=== PATIENT | female | born 1940 | race Caucasian/White ===

== ENCOUNTER 2017-05-23 06:48 | Inpatient (IN) ==
--- NOTE | 2017-05-22 20:37 | Discharge Summary ---
<Kati Alva E - Last Filed: 05/22/17 20:34> Date of Encounter: 05/22/17 - Discharge Diagnosis (1) Arthritis of right knee Priority: Primary Status: Chronic (2) CAD (coronary artery disease) Priority: Secondary Status: Chronic Qualifiers: Coronary Disease-Associated Artery/Lesion type: unspecified vessel or lesion type [place] vs. transplanted heart: unspecified whether [place] or transplanted heart Associated angina: angina presence unspecified Qualified Code(s): I25.10 - Atherosclerotic heart disease of [place] coronary artery without angina pectoris (3) CKD (chronic kidney disease) Priority: Secondary Status: Chronic Qualifiers: Chronic kidney disease stage: unspecified stage Qualified Code(s): N18.9 - Chronic kidney disease, unspecified (4) Gout Priority: Secondary Status: Chronic Qualifiers: Gout site: unspecified site Gout etiology: unspecified cause Chronicity: unspecified Qualified Code(s): M10.9 - Gout, unspecified (5) IDDM (insulin dependent diabetes mellitus) Priority: Secondary Status: Chronic (6) HTN (hypertension) Priority: Secondary Status: Chronic Qualifiers: Hypertension type: unspecified Qualified Code(s): I10 - Essential (primary ) hypertension (7) Hemoglobin A1c 8.0 percent or greater Priority: Secondary Status: Chronic (8) HLD (hyperlipidemia) Priority: Secondary Status: Chronic Qualifiers: Hyperlipidemia type: unspecified Qualified Code(s): E78.5 - Hyperlipidemia , unspecified (9) GERD (gastroesophageal reflux disease) Priority: Secondary Status: Chronic Qualifiers: Esophagitis presence: esophagitis presence not specified Qualified Code(s) : K21.9 - Gastro-esophageal reflux disease without esophagitis (10) COPD (chronic obstructive pulmonary disease) Priority: Secondary Status: Chronic Qualifiers: COPD type: unspecified COPD Qualified Code(s): J44.9 - Chronic obstructive pulmonary disease, unspecified (11) ABA (obstructive sleep apnea) Priority: Secondary Status: Chronic - Discharge Medications Home Medications: Aspirin Enteric Coated [Aspirin EC] 325 mg PO DAILY 21 Days #21 tablet. [Rx] OxyCODONE Immed Rel [Roxicodone 5 MG] 5 mg PO Q6HR PRN 7 Days #28 tablet [Rx] Allopurinol [Zyloprim 100 MG] 100 mg PO DAILY 05/23/17 [History] Amitriptyline [Elavil] 25 mg PO HS 05/23/17 [History] Aspirin [Lo-Dose Aspirin EC] 81 mg PO DAILY 05/23/17 [History] Calcium Carbonate [Calcium] 600 mg PO BID 05/23/17 [History] Celecoxib [Celebrex] 200 mg PO DAILY 05/23/17 [History] Docusate Sodium [Dok] 100 mg PO BID 05/23/17 [History] Insulin Glargine,Hum.rec.anlog [Lantus Solostar] 55 units SQ BID 05/23/17 [ History] Insulin LISPRO [Humalog Kwikpen U-100] 0 unit SQ TID PRN 05/23/17 [History] Losartan/Hydrochlorothiazide [Losartan-Hctz 100-25 mg Tab] 1 tab PO DAILY [History] Metoprolol [Lopressor] 50 mg PO BID 05/23/17 [History] Omeprazole [PriLOSEC] 20 mg PO DAILY 05/23/17 [History] OxyCODONE/APAP 10/325 [Percocet 10/325 MG] 1 - 2 tab PO Q6H PRN 05/23/17 [ History] Oxygen 2 l NS HS 05/23/17 [History] Venlafaxine [Effexor] 37.5 mg PO DAILY 05/23/17 [History] Vitamin E Acetate [Vitamin E] 400 unit PO DAILY 05/23/17 [History] Allergies/Adverse Reactions: 3 Allergy/AdvReac Type Severity Reaction Status Date / Time No Known Allergies Allergy Verified 05/23/17 07:20 Primary care physician: Jayson Yanez Jr, MD - Patient Status Disposition: Home Health Service Condition: Good - Discharge Instructions Follow Up With: Jayson Yanez Jr, MD [Primary Care Provider] - - Hospital Course Hospital course: Ms. Wyatt is a 77 year old female - Time Spent with Patient Total time spent providing and/or coordinating discharge services: <Enmanuel Ortiz - Last Filed: 05/24/17 08:53> Date of Encounter: 05/24/17 Time of Encounter: 08:53 - Discharge Diagnosis (1) Obesity (BMI 30.0-34.9) Priority: Secondary Status: Chronic (2) Arthritis of right knee Priority: Primary Status: Chronic (3) CAD (coronary artery disease) Priority: Secondary Status: Chronic Qualifiers: Coronary Disease-Associated Artery/Lesion type: unspecified vessel or lesion type [place] vs. transplanted heart: unspecified whether [place] or transplanted heart Associated angina: angina presence unspecified Qualified Code(s): I25.10 - Atherosclerotic heart disease of [place] coronary artery without angina pectoris (4) CKD (chronic kidney disease) Priority: Secondary Status: Chronic Qualifiers: Chronic kidney disease stage: unspecified stage Qualified Code(s): N18.9 - Chronic kidney disease, unspecified (5) Gout Priority: Secondary Status: Chronic Qualifiers: Gout site: unspecified site Gout etiology: unspecified cause Chronicity: unspecified Qualified Code(s): M10.9 - Gout, unspecified (6) IDDM (insulin dependent diabetes mellitus) Priority: Secondary Status: Chronic (7) HTN (hypertension) Priority: Secondary Status: Chronic Qualifiers: Hypertension type: unspecified Qualified Code(s): I10 - Essential (primary ) hypertension (8) HLD (hyperlipidemia) Priority: Secondary Status: Chronic Qualifiers: Hyperlipidemia type: unspecified Qualified Code(s): E78.5 - Hyperlipidemia , unspecified (9) GERD (gastroesophageal reflux disease) Priority: Secondary Status: Chronic Qualifiers: Esophagitis presence: esophagitis presence not specified Qualified Code(s) : K21.9 - Gastro-esophageal reflux disease without esophagitis (10) COPD (chronic obstructive pulmonary disease) Priority: Secondary Status: Chronic Qualifiers: COPD type: unspecified COPD Qualified Code(s): J44.9 - Chronic obstructive pulmonary disease, unspecified (11) ABA (obstructive sleep apnea) Priority: Secondary Status: Chronic (12) Status post total right knee replacement Priority: Primary Status: Acute (13) Acute blood loss anemia Priority: Primary Status: Acute (14) Hemoglobin A1c 8.0 percent or greater Priority: Secondary Status: Chronic Primary care physician: Jayson Yanez Jr, MD - Patient Status Functional capacity at discharge: uses cane/walker Overall status at discharge: patient is progressing back to baseline - Hospital Course Hospital course: Ms. Wyatt is a 77 year old female Status post right total knee replacement The patient had an uneventful postoperative course. They received antibiotics and physical therapy and were discharged in stable condition. There will follow -up in the office in 2 weeks. - Time Spent with Patient Total time spent providing and/or coordinating discharge services:
--- NOTE | 2017-05-22 20:42 | Physician Discharge Referral ---
Home Health/Hosp Referral Info Transfer to: Home Health Attending Provider: Dr. Enmanuel Ortiz - Diagnosis (1) Arthritis of right knee Priority: Primary Status: Chronic (2) CAD (coronary artery disease) Priority: Secondary Status: Chronic (3) CKD (chronic kidney disease) Priority: Secondary Status: Chronic (4) Gout Priority: Secondary Status: Chronic (5) IDDM (insulin dependent diabetes mellitus) Priority: Secondary Status: Chronic (6) HTN (hypertension) Priority: Secondary Status: Chronic (7) Hemoglobin A1c 8.0 percent or greater Priority: Secondary Status: Chronic (8) HLD (hyperlipidemia) Priority: Secondary Status: Chronic (9) GERD (gastroesophageal reflux disease) Priority: Secondary Status: Chronic (10) COPD (chronic obstructive pulmonary disease) Status: Chronic (11) ABA (obstructive sleep apnea) Priority: Secondary Status: Chronic (12) Status post total right knee replacement Priority: Primary Status: Acute - Respiratory Orders Smoking Cessation: Smoking cessation has been advised. For more information, call the [employer] [employer] Quit Line at [phone]. - Dressing/Wound Care Site: right knee Type of Dressing/Treatments w/Frequency: Opsite placed. Keep dressing intact until first follow up appointment. If > 50% saturated, notify office, remove dressing and place appropriate dressing back in place. Leave Zipline intact. Opsite dressing is water resistant, not water- proof. OK to shower, but do not get dressing wet. - Diet/Nutrition Diet/Nutrition Orders: Regular - Activity Activity Orders: Up ad maryanne, Ambulate, Chair, Walker - Services Needed Following services are medically necessary services: Nursing, Home Health Aide, Physical Therapy, Occupational Therapy Home Care Orders: Total Knee replacement Precautions x 6 weeks Apply cold therapy wrap 3-6x/day for 20 minutes at a time. Encourage ambulation throughout the day and incentive spirometer 10x/hour. Elevate affected extremity above heart as tolerated. Brace: Wear knee immobilizer at night x 2 weeks. - Transfer Medications Prescriptions: OxyCODONE Immed Rel [Roxicodone 5 MG] 5 mg PO Q6HR PRN 7 Days #28 tablet PRN Reason: Pain Aspirin Enteric Coated [Aspirin EC] 325 mg PO DAILY 21 Days #21 tablet. Home Medications: Aspirin Enteric Coated [Aspirin EC] 325 mg PO DAILY 21 Days #21 tablet. [Rx] OxyCODONE Immed Rel [Roxicodone 5 MG] 5 mg PO Q6HR PRN 7 Days #28 tablet [Rx] Allergies/Adverse Reactions: 3 Allergy/AdvReac Type Severity Reaction Status Date / Time No Known Allergies Allergy Verified 05/07/17 09:48 Certification: Further, I certify that my clinical findings support that this patient is homebound (i.e. absences from home require considerable and taxing effort and are for medical reasons or jehovah's witness services or infrequently or short duration when for other reasons) because: Homebound Reason: Post-surgery restriction and or conditions limit ability to leave home Attestation: My signature below is to certify that this patient is under my care and that I, or nurse practitioner, or a physician interior design assistant working with me, has a face-to- face encounter with this patient.
[2017-05-23] MEDS ORDERED: Ethanol\\Acetic Acid\\Na Ace\\Ben 1,000 ML IRRIG.SOLN IR ONE (07:12)
[2017-05-23] MEDS ORDERED: CeFAZolin Syr 2,000MG/20 ML 2,000 MG/20 ML SYRINGE IVPB ONE (07:23)
[2017-05-23] MEDS ORDERED: Albuterol 2.5 MG/3 ML NEBULIZER IH ONE (07:23)
[2017-05-23] MEDS ORDERED: Ringers Solution, Lactated 1,000 ML IVC SCH ×2 (07:30→13:55)
--- NOTE | 2017-05-23 07:38 | History & Physical Report ---
Date of Encounter: 05/23/17 Time of Encounter: 07:37 24 Hour HP Update - Instructions Instructions: If the History and Physical is less than 30 days old and was completed prior to A.M. admission and or procedure and has NOT been updated on calendar day of procedure please complete this update prior to performing procedure. - Update Patient reports changes in Medical Condition: No Changes in examination, assessment, or condition: No Changes in Medication: No Preop tests/diagnostics Reviewed: Yes Surgery Remains Indicated: Yes Consent for Planned Operative Procedure(s) Verified: Yes - Pre-Operative Checklist Preoperative Checklist Indicated: No Prophylactic Antibiotic Ordered: Yes Is VTE Prophylaxis Indicated?: Yes
[2017-05-23] MEDS ORDERED: ROPIVACAINE HCL/PF 0.5% 30 ML VIAL ONE ×2 (08:33→10:48)
[2017-05-23] MEDS ORDERED: Ondansetron 4 MG/2 ML VIAL ONE (08:33)
[2017-05-23] MEDS ORDERED: Bupivacaine/Clonidine Syringe 1 EACH SYRINGE ONE (08:33)
--- NOTE | 2017-05-23 08:35 | Anesthesia Evaluation PreOp ---
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 [Rx] OxyCODONE Immed Rel [Roxicodone 5 MG] 5 mg PO Q6HR PRN 7 Days #28 tablet [Rx] Allopurinol [Zyloprim 100 MG] 100 mg PO DAILY 05/23/17 [History] Amitriptyline [Elavil] 25 mg PO HS 05/23/17 [History] Aspirin [Lo-Dose Aspirin EC] 81 mg PO DAILY 05/23/17 [History] Calcium Carbonate [Calcium] 600 mg PO BID 05/23/17 [History] Celecoxib [Celebrex] 200 mg PO DAILY 05/23/17 [History] Docusate Sodium [Dok] 100 mg PO BID 05/23/17 [History] Insulin Glargine,Hum.rec.anlog [Lantus Solostar] 55 units SQ BID 05/23/17 [ History] Insulin LISPRO [Humalog Kwikpen U-100] 0 unit SQ TID PRN 05/23/17 [History] Losartan/Hydrochlorothiazide [Losartan-Hctz 100-25 mg Tab] 1 tab PO DAILY [History] Metoprolol [Lopressor] 50 mg PO BID 05/23/17 [History] Omeprazole [PriLOSEC] 20 mg PO DAILY 05/23/17 [History] OxyCODONE/APAP 10/325 [Percocet 10/325 MG] 1 - 2 tab PO Q6H PRN 05/23/17 [ History] Oxygen 2 l NS HS 05/23/17 [History] Venlafaxine [Effexor] 37.5 mg PO DAILY 05/23/17 [History] Vitamin E Acetate [Vitamin E] 400 unit PO DAILY 05/23/17 [History] 3 Allergy/AdvReac Type Severity Reaction Status Date / Time No Known Allergies Allergy Verified 05/23/17 07:20 - Meds/Allergy Pre-op Review Medications Reviewed: Yes Allergies Reviewed: Yes Beta Blockers on Current Med List: Yes If Beta Blockers taken, Date/Time (Last Dose taken): 05-23-17 metoprolol 7:55 Anesthesia Results - Labs Laboratory Tests 05/07/17 05/07/17 05/07/17 10:02 10:02 10:02 WBC 7.0 Hgb 13.0 Hct 39.3 Plt Count 186 PT 10.7 INR 1.0 APTT 32.4 Sodium 131 L Potassium 4.7 H Chloride 94 L Carbon Dioxide 24 BUN 34 H Creatinine 1.14 H Est GFR ( Amer) 56 L Est GFR (Non-Af Amer) 46 L BUN/Creatinine Ratio 30 H Est Mean Plasma Glucose Hemoglobin A1c 05/07/17 10:02 WBC Hgb Hct Plt Count PT INR APTT Sodium Potassium Chloride Carbon Dioxide BUN Creatinine Est GFR ( Amer) Est GFR (Non-Af Amer) BUN/Creatinine Ratio Est Mean Plasma Glucose 183 Hemoglobin A1c 8.0 H - Imaging EKG: report reviewed, image reviewed (SINUS RHYTHM WITH FIRST DEGREE AV BLOCK RIGHT BUNDLE BRANCH BLOCK LEFT ANTERIOR FASCICULAR BLOCK LEFT VENTRICULAR HYPERTROPHY AND ST-T CHANGE) Anesthesia Exam Last Vital Signs Temp 97.4 F L 05/23/17 07:36 Pulse 96 05/23/17 07:36 Resp 18 05/23/17 07:36 BP 155/72 05/23/17 07:36 Pulse Ox 97 05/23/17 07:36 Weight: 97 kg NPO (# of Hours): > 8 hrs - HEENT Pupil (Motor): Pupils equal, EOMI Mallampati: III Teeth: Edentulous Oral Opening: Greater than 3 - 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
[2017-05-23] MEDS ORDERED: Lidocaine -MPF 2% 2 ML VIAL ONE (08:46)
[2017-05-23] MEDS ORDERED: *HR* FentaNYL (PF) 100 MCG/2 ML VIAL ONE (08:46)
[2017-05-23] MEDS ORDERED: *HR* Propofol 200 MG/20 ML VIAL IVP ONE (08:46)
[2017-05-23] MEDS ORDERED: *HR* HYDROmorphone (PF) 1 MG/ML SYRINGE IVP PRN ×2 (10:38→13:55)
[2017-05-23] MEDS ORDERED: *HR* Promethazine 25 MG/ML VIAL IVP PRN (10:38)
[2017-05-23] MEDS ORDERED: Dexamethasone 4 MG/ML VIAL ONE ×2 (10:49→11:58)
--- NOTE | 2017-05-23 11:11 | Anesthesia Procedures ---
Date of Encounter: 05/23/17 Time of Encounter: 10:55 Procedures: Anesthesia - Nerve Block Procedure Date: 05/23/17 Time: 10:55 Allergies/Adv Reactions: NKDA Pre-op Diagnosis: Right knee arthritis Surgical Procedure: Right total knee arthroplasty Checklist: Correct Patient Identifier, Correct procedure, History checked Correct side: Right Blood Thinner: No Monitor Applied: EKG, BP, Pulse Oximetry Supplemental Oxygen via Nasal Cannula (L/min): 3 Sedation: Fentanyl (mcg): 100 Indication: Post Op Analgesia Pre-op Neuro Deficits: No Block Type: Femoral, Other (IPAC) Catheter placed: No Sterile Technique: Yes Ultrasound used: Yes Anatomy identified: Yes Visual spread of Local: Yes Neuro Stimulation: No Blood on Needle Aspiration: No Smooth Injection of Local: Yes Pain with Injection of Local: No Prep: Chlorhexadine Needle: 22 x 50 mm Stimuplex, 21 x 100 mm Stimuplex Local: 0.25% Bupivicaine w/Clonidine 20 mcg/cc (20ml IPAC), Ropivacaine (0.5% 30ml) Volume (cc): 50 Number of Attempts: 1 Complications: None/effective block Vitals: Vital Signs Temperature 97.4 F L 05/23/17 07:15 Pulse Rate 96 05/23/17 07:15 Respiratory Rate 18 05/23/17 07:15 Blood Pressure 155/72 05/23/17 07:15 O2 Sat by Pulse Oximetry 97 05/23/17 07:15 Temperature 97.4 F L 05/23/17 07:36 Pulse Rate 80 05/23/17 10:28 Respiratory Rate 16 05/23/17 10:28 Blood Pressure 150/73 05/23/17 10:28 O2 Sat by Pulse Oximetry 96 05/23/17 10:28
--- NOTE | 2017-05-23 12:39 | Orthopedic Operative Note ---
Date of procedure: 05/23/17 Pre-op diagnosis: Right knee arthritis Post-op diagnosis: same Procedure: Procedure: Right robotic-assisted Total knee replacement Estimated blood loss: 500 cc Hardware: Metal and polyethylene replacement. Kouts Femur: 3 Tibia: 4 TC 11 Patella: 36 Exam Under anesthesia: 15 degrees flexion contracture 15 degrees varus as calculated by the robot full flexion and no instability Procedural Notes: Grade 4 arthritic changes patellofemoral joint medial compartment Operative procedure: The patient was brought to the operating room and placed on the operating room table. After general anesthesia was administered the operative knee was examined. Findings were noted in the exam under anesthesia. The operative extremity was prepped and draped in sterile surgical fashion. The patient received IV antibiotics prior to skin incision. A standard midline incision was made centered over the patella. The incision was made through the skin and subcutaneous tissue. A medial parapatellar tendon approach was performed. Care was taken to preserve tissue along the medial aspect of the patella. And to protect the patella tendon. The deep MCL was released off the medial tibia. The infra patella fat pad was excised. The patella was everted and cut was made at the level of the insertion of the quadriceps and patella tendon. The patella was sized to a 36 the guide was seated and the lug holes are drilled. Knee was brought into flexion. Patient noted to have grade 4 arthritic changes medial compartment and patellofemoral joint. Steinmann pins were placed in the tibia and the femur for the tibial and femoral arrays respectively. Checkpoints were also placed in the tibia and the femur for calculation purposes. The knee including the femur and the tibial registered. Osteophytes , ACL and PCL were excised at this point. Extension was assessed and valgus stress applied at 15 degrees of flexion and 90 degrees of flexion components were adjusted appropriately. Femoral cuts were made first with robotic assistance, these included the anterior cut posterior cuts chamfer cuts. Tibial cut was then performed with robotic assistance as well. Bone fragments were removed, as well as the medial and lateral meniscus. The size 3 femoral guide was seated box cut was made lug holes are drilled. The size 4 tibial tray was seated and prepared with the fin cutter. Trial reduction with the 11 TC Yen revealed extension of 0 degree 8 degrees varus and full flexion. No varus valgus instability. Trial reduction revealed excellent patella tracking. All trial components were removed all bony surfaces were irrigated. Tibias cemented followed by the femur TC Yen size 11 was seated and secured patella. Patient had similar findings for motion and stability. The knee was closed by the PA. The knee was then irrigated out with 2 L of pulse irrigation. The extensor mechanism was closed with #2 FiberWire suture and #2 PDS suture. The subcutaneous tissue was then irrigated and closed deep with #1 PDS suture superficially with 0 PDS suture and skin was closed with zip tie The patient was then placed in a sterile dressing and a postoperative brace extubated and transferred to recovery room in stable condition. Anesthesia: GETA Surgeon: Enmanuel Ortiz Was there an resident programs assistant present: No Estimated blood loss (cc): 500 Condition: stable Disposition: PACU
[2017-05-23] MEDS ORDERED: EPHEDrine 50 MG/ML VIAL ONE (12:46)
[2017-05-23 13:39] LABS: Hematocrit 35.8 % (35.3-44.9); Hemoglobin 11.5 g/dL (11.5-15.4)
[2017-05-23] MEDS ORDERED: D5% in Water 1,000 ML IVC PRN (13:55)
[2017-05-23] MEDS ORDERED: Sennosides 8.6 MG TABLET PO PRN (13:55)
[2017-05-23] MEDS ORDERED: MOM Conc 10 ML UD.LIQ PO PRN (13:55)
[2017-05-23] MEDS ORDERED: *HR* Dextrose 50 % in Water (Syg) 50 ML SYRINGE IVP PRN (13:55)
[2017-05-23] MEDS ORDERED: Dextrose Gel 15 GM PO PRN ×2 (13:55)
[2017-05-23] MEDS ORDERED: Temazepam 15 MG CAPSULE PO PRN (13:55)
[2017-05-23] MEDS ORDERED: Ondansetron 4 MG/2 ML VIAL IVP PRN (13:55)
[2017-05-23] MEDS ORDERED: Naloxone 0.4 MG/ML INJ IVP PRN (13:55)
[2017-05-23] MEDS ORDERED: *HR* OxyCODONE Immed Rel 5 MG TABLET PO PRN (13:55)
[2017-05-23] MEDS: Insulin LISPRO 300 UNITS/3 ML VIAL SQ SCH ×2 (14:41→17:02)
[2017-05-23] MEDS: Aspirin Enteric Coated 81 MG Tablet PO SCH (14:43)
[2017-05-23] MEDS: Losartan/HCTZ 50-12.5 TABLET PO SCH (14:43)
[2017-05-23] MEDS: Insulin DETEMIR 100 UNIT/ML X5UNITS SQ SCH ×2 (17:00→21:27)
[2017-05-23] MEDS: *HR* Enoxaparin 30 MG/0.3 ML SYRINGE SQ SCH (17:02)
[2017-05-23] MEDS ORDERED: *HR* Enoxaparin 30 MG/0.3 ML SYRINGE SQ SCH (18:00)
[2017-05-23] MEDS ORDERED: NON-FORMULARY MEDICATION 1 EACH EACH (Oxygen [Oxygen] 2 L) NS SCH (21:00)
[2017-05-23] MEDS ORDERED: Insulin LISPRO 300 UNITS/3 ML VIAL SQ SCH (21:00)
[2017-05-23] MEDS: CeFAZolin Premix DUPLEX 2,000 MG/50 ML BAG IVPB SCH (21:26)
[2017-05-24] MEDS: CeFAZolin Premix DUPLEX 2,000 MG/50 ML BAG IVPB SCH (03:18)
[2017-05-24 04:48] LABS: Hematocrit 28.8 % (35.3-44.9)
[2017-05-24 04:58] LABS: Potassium 4.6 mEq/L (3.5-5.1)
[2017-05-24 05:01] LABS: Hemoglobin 9.5 g/dL (11.5-15.4)
[2017-05-24] MEDS: *HR* Enoxaparin 30 MG/0.3 ML SYRINGE SQ SCH (06:30)
[2017-05-24] MEDS: Aspirin Enteric Coated 81 MG Tablet PO SCH (07:34)
[2017-05-24] MEDS: Losartan/HCTZ 50-12.5 TABLET PO SCH (07:35)
[2017-05-24] MEDS: *HR* OxyCODONE Immed Rel 5 MG TABLET PO PRN ×2 (07:35→14:29)
[2017-05-24] MEDS: Insulin LISPRO 300 UNITS/3 ML VIAL SQ SCH ×2 (07:35→12:23)
[2017-05-24] MEDS: Insulin DETEMIR 100 UNIT/ML X5UNITS SQ SCH (09:50)
[2017-05-24 11:54] VITALS: BP 98/60
--- NOTE | 2017-05-24 13:05 | Orthopedics Progress Note ---
Date of Encounter: 05/24/17 Time of Encounter: 13:05 - Assessment and Plan (1) Obesity (BMI 30.0-34.9) Current Visit: Yes Status: Chronic (2) Arthritis of right knee Current Visit: No Status: Chronic (3) CAD (coronary artery disease) Current Visit: No Status: Chronic Qualifiers: Coronary Disease-Associated Artery/Lesion type: unspecified vessel or lesion type [place] vs. transplanted heart: unspecified whether [place] or transplanted heart Associated angina: angina presence unspecified Qualified Code(s): I25.10 - Atherosclerotic heart disease of [place] coronary artery without angina pectoris (4) CKD (chronic kidney disease) Current Visit: No Status: Chronic Qualifiers: Chronic kidney disease stage: unspecified stage Qualified Code(s): N18.9 - Chronic kidney disease, unspecified (5) Gout Current Visit: No Status: Chronic Qualifiers: Gout site: unspecified site Gout etiology: unspecified cause Chronicity: unspecified Qualified Code(s): M10.9 - Gout, unspecified (6) IDDM (insulin dependent diabetes mellitus) Current Visit: No Status: Chronic (7) HTN (hypertension) Current Visit: No Status: Chronic Qualifiers: Hypertension type: unspecified Qualified Code(s): I10 - Essential (primary ) hypertension (8) HLD (hyperlipidemia) Current Visit: No Status: Chronic Qualifiers: Hyperlipidemia type: unspecified Qualified Code(s): E78.5 - Hyperlipidemia , unspecified (9) GERD (gastroesophageal reflux disease) Current Visit: No Status: Chronic Qualifiers: Esophagitis presence: esophagitis presence not specified Qualified Code(s) : K21.9 - Gastro-esophageal reflux disease without esophagitis (10) COPD (chronic obstructive pulmonary disease) Current Visit: No Status: Chronic Qualifiers: COPD type: unspecified COPD Qualified Code(s): J44.9 - Chronic obstructive pulmonary disease, unspecified (11) ABA (obstructive sleep apnea) Current Visit: No Status: Chronic (12) Status post total right knee replacement Current Visit: No Status: Acute (13) Acute blood loss anemia Current Visit: Yes Status: Acute (14) Hemoglobin A1c 8.0 percent or greater Current Visit: No Status: Chronic Subjective Interval history: Patient was seen this morning doing well without complaints. Afebrile vital signs stable. Operative extremity: Neurovascularly intact Dressing clean dry and intact Calves nontender Assessment and plan: Continue with postoperative care Hemoglobin 9.5 discharged today Objective Vital signs: Vital Signs Temp Pulse Resp BP Pulse Ox 05/24/17 11:46 97.7 F 92 16 98/60 93 05/24/17 07:06 98.2 F 94 18 100/60 93 05/24/17 00:25 97.7 F 88 19 132/61 97 05/23/17 20:58 99.2 F 104 18 115/57 95 05/23/17 17:03 98.5 F 88 16 111/64 92 05/23/17 16:19 98.7 F 90 16 122/70 93 05/23/17 14:49 98.9 F 86 16 124/66 97 05/23/17 14:27 98.3 F 84 16 110/73 97 05/23/17 14:04 99.8 F H 84 20 131/74 97 05/23/17 13:52 97.4 F L 80 16 131/56 97 05/23/17 13:42 97.4 F L 80 16 144/61 97 05/23/17 13:32 79 16 169/72 97 05/23/17 13:22 80 16 129/100 97 05/23/17 13:12 97.2 F L 80 16 146/69 100 Intake and Output 05/23/17 05/24/17 05/24/17 23:59 07:59 15:59 Intake Total 290 / 290 240 / 240 Output Total 300 / 300 Balance 290 / 290 -300 / -300 240 / 240 Intake: IV Fluids 50 / 50 Ancef Premix DUPLEX 2,000 mg In 50 / 50 50 ml @ 100 mls/hr IVPB Q8H [facility] Rx#:[id number] Oral 240 / 240 240 / 240 Output: Urine 300 / 300 Other: Meal Dinner Breakfast Percent of Meal Consumed 100% 100% Blood Glucose* 380 316 302 - Labs CBC & BMP: 05/24/17 04:12 05/24/17 04:12 Labs: Abnormal lab results Hgb 9.5 g/dL (11.5-15.4) L D 05/24/17 04:12 Hct 28.8 % (35.3-44.9) L 05/24/17 04:12 Sodium 133 mEq/L (136-145) L 05/24/17 04:12 Est GFR ( Amer) 59 (> 60) L 05/24/17 04:12 Est GFR (Non-Af Amer) 49 (> 60) L 05/24/17 04:12 Glucose 321 mg/dL (70-105) H 05/24/17 04:12 POC Glucose 302 (58-89) H 05/24/17 11:53 - VTE Documentation of Mechanical Device: Venous foot pump, device Consult Discharge Plan - Plan Referrals: Kati Alva, PAC [Physician Operations Logistics Analyst] - 05/31/17 10:15 am (& also, , June 07, 2017 at 1:00 PM) Enmanuel Ortiz MD [Partnered Physician] - 06/20/17 5:40 pm Jayson Yanez Jr, MD [Primary Care Provider] -
== END 2017-05-24 15:50 | disposition home health service (06) | DRG 470 ==
LOC: SAMDAY 06:48 → 3NENU 13:54
PROVIDERS: ADMIT Orthopaedic Surgery; ATTEND Orthopaedic Surgery